=== PATIENT | male | born 1930 | race Caucasian/White ===

== ENCOUNTER 2017-05-28 08:45 | Outpatient (RCR) | payer MEDICARE, OTHER ==
[2015-11-09 08:36] VITALS: BMI 21.3
[2017-04-22 14:15] VITALS: BP 138/73
[~2017-05-28 08:45] MED LIST: ACE3 PO; ACY200 PO; AIRBORNE; ALLO100T70 PO; ASCO-182 PO; ASP81 PO; ASPI-715 PO; AZEL137S NS; AZIT-17 PO; BEN10 PO; BEN20 PO; CALC-1046 PO; CALC-488 PO; CALC-852 PO; CHOL10005 PO; CLOP75TA43 PO; ENOX80DI8 SQ; FA/M1TAB27 PO; FEXO-72 PO; FLU100 PO; FLUT9.9S; GLUC-198 PO; GLUC-232 PO; GLUC500C29 PO; HCTZ25 PO; HYDR-2966 PO; IBRU140C PO; LEV500 PO; NAPR-1043 PO; NAPR220T52 PO; NO MEDICATIONS; OXYC-865 PO; PNEU0.5D3 IM; RIV10 PO; VAL500 PO; VALS40TA7 PO; VALS80TA2 PO; WAR2 PO; WAR5 PO; WARF-18 PO; [UNRECOGNIZED DRUG - REMARK]
== END 2017-06-28 09:35 | disposition home or self-care (01) ==
LOC: ONC 08:45
PROVIDERS: ATTEND Internal Medicine Hematology
DX: C88.0 Waldenstrom macroglobulinemia (principal)